=== PATIENT | male | born 1965 | race Caucasian/White ===

== ENCOUNTER 2019-03-25 01:35 | Emergency (ER) | payer OTHER ==
[~2019-03-25] VITALS: Ht 177.8 cm; Wt 79.5 kg
[2019-03-25 01:40] VITALS: BP 135/95
[2019-03-25] MEDS ORDERED: MVI, ADULT NO.4 WITH VIT K 10 ML, FOLIC ACID SYRINGE for ER 1 MG, THIAMINE INJ 100 MG i... IV ONE ×4 (02:00)
[2019-03-25] MEDS ORDERED: FOLIC ACID 5 MG/ML SYRINGE for ER IV ONE (02:06)
[2019-03-25] MEDS ORDERED: MVI, ADULT NO.4 WITH VIT K 10 ML VIAL IV ONE (02:06)
[2019-03-25] MEDS ORDERED: THIAMINE 200 MG/2 ML VIAL. IV ONE (02:06)
--- NOTE | 2019-03-25 02:10 | PHYS DOC ---
Adult General Chief Complaint Chief Complaint: fall, etoh HPI HPI 53-year-old male presents via EMS after fall at home. The patient admits to drinking a heavy amount of vodka since he got out of correction several days ago. He is drinking at least a liter per day. He fell a few days ago and was reported to be checked out at [facility]. He fell again today. He has left knee swelling and pain as well as some abrasions of his face. He knows that he fell on the floor, but does not really remember what happened. He has been drinking heavily today. The left knee has been swollen for a couple of days. He denies headache, fever, chills. Review of Systems Review of Systems Constitutional: Denies fever or chills [] Eyes: Denies change in visual acuity, redness, or eye pain [] HENT: Denies nasal congestion or sore throat [] Respiratory: Denies cough or shortness of breath [] Cardiovascular: No additional information not addressed in HPI [] GI: Denies abdominal pain, nausea, vomiting, bloody stools or diarrhea [] : Denies dysuria or hematuria [] Musculoskeletal: Knee pain[] Integument: Denies rash or skin lesions [] Neurologic: Denies headache, focal weakness or sensory changes [] Endocrine: Denies polyuria or polydipsia [] All other systems were reviewed and found to be within normal limits, except as documented in this note. Current Medications Current Medications Current Medications Medications (Trade) Dose Ordered Sig/Aaron Start Time Stop Time Status Last Admin Dose Admin Multivitamins/ Minerals 10 ml/ Folic Acid 1 mg/ Thiamine HCl 100 mg/Sodium Chloride 1,011.1 ml @ 1,000 mls/ hr 1X ONCE 03/25/19 02:00 03/25/19 03:00 UNV Physical Exam Physical Exam Constitutional: Well developed, well nourished, no acute distress, non-toxic appearance. [] HENT: Normocephalic, atraumatic, bilateral external ears normal, oropharynx moist, no oral exudates, nose normal. [] Eyes: PERRLA, EOMI, conjunctiva normal, no discharge. [] Neck: Normal range of motion, no tenderness, supple, no stridor. [] Cardiovascular:Heart rate regular rhythm, no murmur [] Lungs & Thorax: Bilateral breath sounds clear to auscultation [] Abdomen: Bowel sounds normal, soft, no tenderness, no masses, no pulsatile masses. [] Skin: Abrasions of the face, right knee, left knee[] Back: No tenderness, no CVA tenderness. [] Extremities: Significant swelling of the left knee, warm to the touch, mildly erythematous overlying skin.[] Neurologic: Alert and oriented X 3, normal motor function, normal sensory funct ion, no focal deficits noted. [] Psychologic: Affect normal, judgement normal, mood normal. [] EKG EKG [] Radiology/Procedures Radiology/Procedures [] Impressions: Indication:Left knee pain and swelling. TECHNIQUE: 3 views of the left knee COMPARISON:None FINDINGS/ impression: No acute fracture or dislocation. No joint effusion. Prepatellar soft tissue swelling noted. Electronically signed by: Remigio Moreno DO (03/25/2019 2:37 AM) [facility] DICTATED AND SIGNED BY: REMIGIO MORENO DO DATE: 03/25/19236 CC: RICHELLE BAJWA DO; DELMY MERCADO APRN ~ Course & Med Decision Making Course & Med Decision Making Pertinent Labs and Imaging studies reviewed. (See chart for details) Given the swelling of the patient's knee and it did not the touch, I did do a repeat aspiration. I was able to remove 14 mL of serosanguineous fluid. These were sent to the lab for cell count, Gram stain, culture, and crystal analysis. We will also perform basic labs and a banana bag, 1 L. Patient's labs are unremarkable. His knee aspiration fluid analysis is a send out lab. We will notify him if infection is seen. I do not have high suspicion of infection. The patient would like to go home. He is stable for discharge at this time. [] Dragon Disclaimer Dragon Disclaimer This electronic medical record was generated, in whole or in part, using a voice recognition dictation system. Departure Departure: Impression: Primary Impression: Alcohol intoxication Additional Impressions: Left knee pain Fall Disposition: HOME, SELF-CARE Condition: STABLE Referrals: DELMY MERCADO APRN (PCP) Patient Instructions: Alcohol Intoxication, [id number] Problem Qualifiers Primary Impression: Alcohol intoxication Complication of substance-induced condition: uncomplicated Qualified Codes: F10.920 - Alcohol use, unspecified with intoxication, uncomplicated Additional Impressions: Left knee pain Chronicity: acute Qualified Codes: M25.562 - Pain in left knee Fall Encounter type: initial encounter Qualified Codes: W19.XXXA - Unspecified fall, initial encounter RICHELLE BAJWA DO March 25, 2019 02:10
--- NOTE | 2019-03-25 02:40 | RAD ---
Indication:Left knee pain and swelling. TECHNIQUE: 3 views of the left knee COMPARISON:None FINDINGS/ impression: No acute fracture or dislocation. No joint effusion. Prepatellar soft tissue swelling noted. Electronically signed by: Remigio Polo DO (03/25/2019 2:37 AM) [facility]
[2019-03-25 03:00] LABS: BASO # 0.3 x10^3/uL (0.0-0.2); BASO % 5 % (0-3); EOS % 1 % (0-3); HEMATOCRIT 35.4 % (39.0-53.0); HEMOGLOBIN 12.5 g/dL (13.0-17.5); LYMPH # 2.1 x10^3/uL (1.0-4.8); LYMPH % 38 % (24-48); MEAN CORPUSCULAR HEMOGLOBIN 34 pg (25-35); MEAN CORPUSCULAR HGB CONC 35 g/dL (31-37); MEAN CORPUSCULAR VOLUME 97 fL (79-100); MONO # 0.6 x10^3/uL (0.0-1.1); MONO % 10 % (0-9); NEUT # 2.6 x10^3uL (1.8-7.7); NEUT % 47 % (31-73); PLATELET COUNT 457 x10^3/uL (140-400); RED BLOOD COUNT 3.67 x10^6/uL (4.30-5.70); RED CELL DISTRIBUTION WIDTH 18.2 % (11.5-14.5); WHITE BLOOD COUNT 5.6 x10^3/uL (4.0-11.0)
[2019-03-25 03:27] LABS: ALBUMIN 3.6 g/dL (3.4-5.0); ALBUMIN/GLOBULIN RATIO 1.2 (1.0-1.7); CALCIUM 7.8 mg/dL (8.5-10.1); CREATININE 0.7 mg/dL (0.7-1.3); GFR 118.4; POTASSIUM 3.5 mmol/L (3.5-5.1); TOTAL BILIRUBIN 0.7 mg/dL (0.2-1.0); TOTAL PROTEIN 6.7 g/dL (6.4-8.2)
[2019-03-25 05:08] LABS: BF CLARITY TURBID; BF COLOR RED; BF SOURCE SYNOVIAL
[2019-03-25 05:09] LABS: BF RBC COUNT 531250; BF WBC COUNT 3600
[2019-03-25 06:18] LABS: BF MON % 55 %; BF PMN % 45 %
== END 2019-03-25 06:20 | disposition home or self-care (01) ==
LOC: ER 01:35
DX: S80.212A Abrasion, left knee, initial encounter (principal); S80.211A Abrasion, right knee, initial encounter; S00.81XA Abrasion of other part of head, initial encounter; F10.920 Alcohol use, unspecified with intoxication, uncomplicated; M25.562 Pain in left knee; W18.39XA Other fall on same level, initial encounter; Y93.89 Activity, other specified; Y92.89 Other specified places as the place of occurrence of the external cause; Y99.8 Other external cause status
CPT/HCPCS: 20610; 36415; 73562; 80053; 85025; 87070; 89050; 89060; 96365; 99285-25; J7030

== ENCOUNTER 2020-09-01 07:39 | Emergency (ER) | payer OTHER ==
[~2020-09-01] VITALS: Ht 177.8 cm; Wt 81.0 kg
--- NOTE | 2020-09-01 08:01 | PHYS DOC ---
Past History Past Medical History: Alcoholism Past Surgical History: No Surgical History Alcohol Use: Heavy Drug Use: None General Adult EDM: Chief Complaint: MECHANICAL FALL HPI: HPI: 54-year-old male presents with right elbow pain. He was at work when he got his foot tangled up in some cords and fell onto a hard floor. At first he did not think it was a big deal so he got up and tried to go about his day. Within 10 minutes the pain in the right elbow increase significantly. He now has a lot of pain with flexion or extension. If he holds it at about 50 degrees of flexion the pain is minimal. He denies any other injuries or complaints at this time. Review of Systems: Review of Systems: Constitutional: Denies fever or chills Eyes: Denies change in visual acuity HENT: Denies nasal congestion or sore throat Respiratory: Denies cough or shortness of breath Cardiovascular: Denies chest pain or edema GI: Denies abdominal pain, nausea, vomiting, bloody stools or diarrhea : Denies dysuria Musculoskeletal: Right elbow and forearm pain Integument: Denies rash Neurologic: Denies headache, focal weakness or sensory changes Endocrine: Denies polyuria or polydipsia Lymphatic: Denies swollen glands Psychiatric: Denies depression or anxiety Physical Exam: PE: Constitutional: Well developed, well nourished, no acute distress, non-toxic appearance. [] HENT: Normocephalic, atraumatic, bilateral external ears normal, oropharynx moist, no oral exudates, nose normal. [] Eyes: PERRLA, EOMI, conjunctiva normal, no discharge. [] Neck: Normal range of motion, no tenderness, supple, no stridor. [] Cardiovascular: Heart rate regular rhythm, no murmur [] Lungs & Thorax: Bilateral breath sounds clear to auscultation [] Abdomen: Bowel sounds normal, soft, no tenderness, no masses, no pulsatile masses. [] Skin: Warm, dry, no erythema, no rash. [] Back: No tenderness, no CVA tenderness. [] Extremities: Tenderness over the right elbow, no ecchymosis or obvious deformity. Range of motion deferred at this time due to pain. [] Neurologic: Alert and oriented X 3, normal motor function, normal sensory function, no focal deficits noted. [] Psychologic: Affect normal, judgement normal, mood normal. [] EKG: EKG: [] Radiology/Procedures: Radiology/Procedures: [] Impressions: EXAMINATION: ELBOW RIGHT 3V, FOREARM RIGHT CLINICAL HISTORY: Right elbow/forearm pain following fall TECHNIQUE: ELBOW RIGHT 3V, FOREARM RIGHT Number of Images/Views: 312 2 forearm COMPARISON: None FINDINGS: Mildly impacted radial neck fracture with slight apex anterior angulation. No additional acute fracture visualized in the elbow or forearm. Joint spaces and alignment maintained with tiny osteophyte at the coronoid process. Small joint effusion at the elbow. IMPRESSION: Mildly impacted right radial neck fracture. Electronically signed by: Bean Zhao DO (09/01/2020 8:18 AM) [id number] DICTATED AND SIGNED BY: BEAN ZHAO DO DATE: 09/01/20817 CC: RICHELLE BAJWA DO; ALEYDA DANIEL MD ~ Heart Score: Risk Factors: Risk Factors: DM, Current or recent (<one month) smoker, HTN, HLP, family history of CAD, obesity. Risk Scores: Score 0 - 3: 2.5% MACE over next 6 weeks - Discharge Home Score 4 - 6: 20.3% MACE over next 6 weeks - Admit for Clinical Observation Score 7 - 10: 72.7% MACE over next 6 weeks - Early Invasive Strategies Course & Med Decision Making: Course & Med Decision Making Pertinent Labs and Imaging studies reviewed. (See chart for details) The patient does have a radial head fracture. We will place him in a posterior splint and sling and advised follow-up with orthopedics. [] Dragon Disclaimer: Dragon Disclaimer: This electronic medical record was generated, in whole or in part, using a voice recognition dictation system. Departure Departure: Impression: Primary Impression: Radial head fracture, closed Qualified Codes: S52.121A - Displaced fracture of head of right radius, initial encounter for closed fracture Disposition: 01 DC HOME SELF CARE/HOMELESS Condition: STABLE Referrals: ALEYDA DANIEL MD (PCP) Patient Instructions: Radial Head Fracture, [id number] Scripts Hydrocodone Bit/Acetaminophen (NORCO 5-325 TABLET) 1 Each Tablet 1 TAB PO PRN Q6HRS PRN for PAIN, #10 TAB 0 Refills Prov: RICHELLE BAJWA DO 09/01/20 RICHELLE BAJWA DO Sep 01, 2020 08:01
[2020-09-01] MEDS ORDERED: HYDR-3165 PO (08:11)
--- NOTE | 2020-09-01 08:21 | RAD ---
EXAMINATION: ELBOW RIGHT 3V, FOREARM RIGHT CLINICAL HISTORY: Right elbow/forearm pain following fall TECHNIQUE: ELBOW RIGHT 3V, FOREARM RIGHT Number of Images/Views: 312 2 forearm COMPARISON: None FINDINGS: Mildly impacted radial neck fracture with slight apex anterior angulation. No additional acute fracture visualized in the elbow or forearm. Joint spaces and alignment maintained with tiny osteophyte at the coronoid process. Small joint effusion at the elbow. IMPRESSION: Mildly impacted right radial neck fracture. Electronically signed by: Bean Grace DO (09/01/2020 8:18 AM) [id number]
[2020-09-01 08:52] VITALS: BP 150/90
== END 2020-09-01 08:53 | disposition home or self-care (01) ==
LOC: ER 07:39
DX: S52.121A Displaced fracture of head of right radius, initial encounter for closed fracture (principal); F10.20 Alcohol dependence, uncomplicated; W18.39XA Other fall on same level, initial encounter; Y93.89 Activity, other specified; Y92.89 Other specified places as the place of occurrence of the external cause; Y99.8 Other external cause status; Y90.9 Presence of alcohol in blood, level not specified
CPT/HCPCS: 29125; 73080; 73090; 99284

== ENCOUNTER 2021-03-22 14:25 | Emergency (ER) | payer OTHER ==
[~2021-03-22] VITALS: Ht 177.8 cm; Wt 81.0 kg
[~2021-03-22 14:25] MED LIST: HYDR-3165 PO
--- NOTE | 2021-03-22 15:05 | PHYS DOC ---
Past History Past Medical History: Anxiety, Asthma, DVT, Other Additional Past Medical Histor: alcohol abuse Past Surgical History: Other Additional Past Surgical Histo: FILTER, SCREWS/PLATE IN LEFT ANKLE, HERNIA, RIGHT SHOULDER Alcohol Use: Heavy Drug Use: None Adult General Chief Complaint Chief Complaint: ANXIETY/PANIC ATTACK HPI HPI Patient is a 55-year-old male presenting via EMS for alcohol detox. Patient reports long history of alcohol dependence admitting he drinks at least a sixpack of beer daily. He has long history of this. Admits he has been sober in the past and was "sober for years". He is tearful, states he relapsed several months ago due to an undisclosed reason and has been drinking daily ever since. He woke up today, drinks a sixpack of beer and at 11 AM, got tearful about current state of health and wants to quit. No recent trauma, fever or other change in baseline health. Reports he has history of DVT in feet and is currently on Xarelto. Does admit he has history of withdrawing from alcohol, has had seizures in the past Review of Systems Review of Systems Fourteen body systems of review of systems have been reviewed. See HPI for pertinent positives and negative responses, other hess all other systems are negative, non-pertinent or non-contributory Allergies Allergies Allergies Coded Allergies Type Severity Reaction Last Updated Verified No Known Drug Allergies 09/01/20 No Physical Exam Physical Exam Constitutional: Well developed, well nourished, no acute distress, non-toxic appearance. HENT: Normocephalic, atraumatic, bilateral external ears normal, oropharynx moist, no oral exudates, nose normal. Flushed face Eyes: PERRLA, EOMI, conjunctiva normal, no discharge. Neck: Normal range of motion, no tenderness, supple, no stridor. Cardiovascular: Heart rate regular, sinus rhythm, no murmurs rubs or gallops Lungs & Thorax: Bilateral breath sounds clear to auscultation Abdomen: Bowel sounds normal, soft, no tenderness, no masses, no pulsatile masses. Nonsurgical abdomen, no peritoneal signs Skin: Warm, dry, no erythema, no rash. Back: No tenderness, no CVA tenderness. Extremities: No tenderness, no cyanosis, no clubbing, ROM intact, no edema. Neurologic: Alert and oriented X 3, grossly normal motor & sensory function, no focal deficits noted. Psychologic: Tearful affect, judgement normal, mood normal. Current Patient Data Vital Signs Vital Signs Date Time Temp Pulse Resp B/P (MAP) Pulse Ox O2 Delivery O2 Flow Rate FiO2 03/22/21 14:36 98.6 84 16 150/90 (110) 95 Room Air Lab Results Current Medications Medications (Trade) Dose Ordered Sig/Aaron Route PRN Reason Start Time Stop Time Status Last Admin Dose Admin Thiamine HCl 100 mg/Sodium Chloride 51 ml @ 102 mls/hr DAILY IV 03/23/21 09:00 03/22/21 18:02 DC 03/22/21 16:34 Sodium Chloride 1,000 ml @ 1,000 mls/hr 1X ONCE IV 03/22/21 15:30 03/22/21 16:29 DC 03/22/21 15:49 Lorazepam (Ativan Inj) 1 mg 1X ONCE IVP 03/22/21 15:30 03/22/21 15:45 DC 03/22/21 15:51 EKG EKG EKG ordered and interpreted by myself at 1440 hrs. as sinus rhythm at 87 bpm, prolonged QTC at 482 otherwise unremarkable intervals, no axis deviation, no acute ischemic findings, no STEMI Radiology/Procedures Radiology/Procedures [] Heart Score C/O Chest Pain: No HEART Score for Chest Pain: HEART Score for Chest Pain Response (Comments) Value History Slighlty/Non-Suspicious 0 ECG Normal 0 Age >45 - < 65 1 Risk Factors 1 or 2 Risk Factors 1 Troponin < Normal Limit 0 Total 2 Risk Factors: Risk Factors: DM, Current or recent (<one month) smoker, HTN, HLP, family history of CAD, obesity. Risk Scores: Risk Factors: DM, Current or recent (<one month) smoker, HTN, HLP, family history of CAD, obesity. Course & Med Decision Making Course & Med Decision Making Hemodynamically stable patient with HPI, physical exam and ER work-up consistent with acute on chronic alcohol dependence PAT team contacted and evaluated patient. Patient was excepted to [facility] for continued mental health needs after medical clearance from our facility. Given alcohol level, plan will be to admit patient Nonetheless, when discussing proposed plan of care patient deferred hospital admission and/or transfer to [facility]. States he has animals at home and states he has some things he needs to take care of before being placed into inpatient status long-term I had an extensive discussion with the patient regarding the risks of leaving AMA including but not limited to , permanent disability, and worsening condition. Pt acknowledged the risks and agreed to take full responsibility. Pt was A&Ox4 and had full medical decision making capacity when they signed the AMA sheet. Patient's alcohol level severely elevated but this is likely baseline for him, he is functional, he is aware the risks and benefits discussed Risks and Recommendations: The risks of refusing recommended care that were disclosed and acknowledged by the patient include loss of current lifestyle, permanent mental impairment, and . The recommended medical care being refused has been discussed with the patient and is to stay for continued monitoring, workup, and possible treatment. Discharge Care: The patient understands they are welcome to return to the hospital at any time to receive the recommended care or any other care at any time, regardless of their ability to pay for such care. Discharge instructions were provided to the patient. Dragon Disclaimer Dragon Disclaimer This electronic medical record was generated, in whole or in part, using a voice recognition dictation system. Departure Departure: Impression: Primary Impression: Alcohol dependence Disposition: LEFT AGAINST MEDICAL ADVICE Condition: STABLE Referrals: ALEYDA DANIEL MD (PCP) Patient Instructions: Alcohol Intoxication, Alcohol Withdrawal Additional Instructions: You were seen for alcohol intoxication and dependence. As abrupt cessation of alcohol can be fatal, you should refer to the resource sheet for help in stopping your addiction with help in a controlled environment. As discussed, we recommended hospital admission and placement to [facility] for inpatient alcohol rehab but you declined. You had full capacity to make this decision and understood the risks and benefits of doing so that included potential . Please know we are here for you 23/05 if you should change your mind and are always wanting to take care and provide the best care to you so if things change prior to outpatient follow-up please do not hesitate to come back for repeat evaluation and intervention as indicated. It was a pleasure to take care of you and I wish you the best going forward DEEPAK ERIC DO March 22, 2021 15:05
[2021-03-22 15:25] LABS: BASO # 0.2 x10^3/uL (0.0-0.2); BASO % 6 % (0-3); EOS # 0.2 x10^3/uL (0.0-0.7); EOS % 6 % (0-3); HEMATOCRIT 45.3 % (39.0-53.0); HEMOGLOBIN 15.6 g/dL (13.0-17.5); LYMPH # 1.7 x10^3/uL (1.0-4.8); LYMPH % 45 % (24-48); MEAN CORPUSCULAR HEMOGLOBIN 36 pg (25-35); MEAN CORPUSCULAR HGB CONC 34 g/dL (31-37); MEAN CORPUSCULAR VOLUME 105 fL (79-100); MONO # 0.7 x10^3/uL (0.0-1.1); MONO % 19 % (0-9); NEUT # 0.9 x10^3uL (1.8-7.7); NEUT % 25 % (31-73); PLATELET COUNT 175 x10^3/uL (140-400); RED BLOOD COUNT 4.32 x10^6/uL (4.30-5.70); RED CELL DISTRIBUTION WIDTH 15.2 % (11.5-14.5); WHITE BLOOD COUNT 3.7 x10^3/uL (4.0-11.0)
[2021-03-22] MEDS ORDERED: IV NORMAL SALINE 1,000ML 1,000 ML IV ONE (15:30)
[2021-03-22 15:35] LABS: CALCIUM 7.8 mg/dL (8.5-10.1); CREATININE 0.6 mg/dL (0.7-1.3); GFR 140.4
[2021-03-22 15:41] LABS: ALBUMIN 3.4 g/dL (3.4-5.0); ALBUMIN/GLOBULIN RATIO 1.1 (1.0-1.7); TOTAL BILIRUBIN 0.6 mg/dL (0.2-1.0); TOTAL PROTEIN 6.5 g/dL (6.4-8.2)
--- NOTE | 2021-03-22 16:16 | EKG ---
[address] [address] Test Date: 2021-03-22 Test Time: 14:36:05 Pat Name: GILLIAN FUNES Department: Room: Gender: M Crane Hooker: LIDIA : 1965 Requested By: DEEPAK ERIC Order Number: [id number] Reading MD: Measurements Intervals [place] Rate: 87 P: 43 UT: 172 QRS: 20 QRSD: 96 T: 59 QT: 400 QTc: 482 Interpretive Statements SINUS RHYTHM PROLONGED QT NO SPECIFIC ECG ABNORMALITIES RI6.02 No previous ECG available for comparison
[2021-03-22 17:30] VITALS: BP 107/78
[2021-03-23] MEDS ORDERED: BUSP10TA PO (00:42)
[2021-03-23] MEDS ORDERED: CITA10TA4 PO (00:42)
[2021-03-23] MEDS ORDERED: TRAZ-120 PO (00:42)
[2021-03-23] MEDS ORDERED: CITA20TA6 PO (00:42)
[2021-03-23] MEDS ORDERED: GABA100C6 PO (00:42)
[2021-03-23] MEDS ORDERED: RIVA20TA2 PO (00:42)
[2021-03-23] MEDS ORDERED: THIAMINE INJ 100 MG in IV NORMAL SALINE 50ML 50 ML IV SCH (09:00)
== END 2021-03-22 18:02 | disposition left against medical advice (07) ==
LOC: ER 14:25
DX: F10.229 Alcohol dependence with intoxication, unspecified (principal); F10.239 Alcohol dependence with withdrawal, unspecified; F41.9 Anxiety disorder, unspecified; J45.909 Unspecified asthma, uncomplicated; Y90.8 Blood alcohol level of 240 mg/100 ml or more
CPT/HCPCS: 36415; 80053; 83735; 84484; 85025; 93005; 96361; 96374; 96375; 99284; G0480; J2060; J7030

== ENCOUNTER 2021-03-22 20:52 | Inpatient (IN) | payer SELFPAY ==
[~2021-03-22] VITALS: Ht 177.8 cm; Wt 84.3 kg
--- NOTE | 2021-03-22 21:13 | PHYS DOC ---
Past History Past Medical History: Anxiety, Asthma, DVT, Other Additional Past Medical Histor: alcohol abuse Past Surgical History: Other Additional Past Surgical Histo: FILTER, SCREWS/PLATE IN LEFT ANKLE, HERNIA, RIGHT SHOULDER Alcohol Use: Heavy Drug Use: None Adult General Chief Complaint Chief Complaint: ALCOHOL INTOXICATION HPI HPI Patient is a 55-year-old male with a past medical history significant for alco holism who presents to the emergency department with a chief complaint of wanting alcohol detox. States he drinks anywhere from 10 to 20 glasses a day of wine and has for quite some time. States he was in the emergency department earlier in the day for the same thing and left before treatment was completed. States he essentially left, went home and had more alcohol. States he came back because he is drunk, he is upset and he wants to quit drinking alcohol. Denies any headache, changes in vision, chest pain, shortness of breath, abdominal pain, nausea, vomiting, dysuria, hematuria or blood in the stool. Denies any recent travel, traumas, fevers, illnesses or known ill contacts. Denies any other drug use outside of alcohol. Denies any suicidal thoughts or ideations. Denies any homicidal ideations. Denies any type of hallucinations. States he is here solely to get some help with his drinking problem. Review of Systems Review of Systems Review of systems otherwise unremarkable except noted in HPI Allergies Allergies Allergies Coded Allergies Type Severity Reaction Last Updated Verified No Known Drug Allergies 09/01/20 No Physical Exam Physical Exam Constitutional: Well developed, well nourished, no acute distress, non-toxic appearance. [] HENT: Normocephalic, atraumatic, oropharynx moist, no oral exudates, nose normal. [] Eyes: conjunctiva normal, no discharge. [] Neck: Normal range of motion, no tenderness, Cardiovascular: Sinus tachycardia Lungs & Thorax: Bilateral breath sounds clear to auscultation [] Abdomen: soft, no tenderness, no masses, no pulsatile masses. [] Skin: Warm, dry, no erythema, no rash. [] Back: No tenderness, Extremities: No tenderness, no cyanosis, no clubbing, ROM intact, no edema. [] Neurologic: Alert and oriented X 3, normal motor function, normal sensory function, no focal deficits noted. [] Psychologic: Affect normal, judgement normal, mood normal. [] EKG EKG [] Radiology/Procedures Radiology/Procedures [] Heart Score C/O Chest Pain: No Risk Factors: Risk Factors: DM, Current or recent (<one month) smoker, HTN, HLP, family history of CAD, obesity. Risk Scores: Risk Factors: DM, Current or recent (<one month) smoker, HTN, HLP, family history of CAD, obesity. Course & Med Decision Making Course & Med Decision Making Patient is a 55-year-old male who presents the emergency department stating he wants help and/or resources with his alcohol problem. States he was here earlier in the day and left, and he did talk to the guidance counselor and was set up to go somewhere but left and he now regrets that. Vital signs notable for sinus tachycardia. Physical exam noted above. Laboratory analysis notable for elevated MCV, elevated GGT and LFTs, and mild hypocalcemia. Covid negative. Patient given B vitamin complex, and calcium replacement. Given IV fluid resuscitation. Given meal. Discussed patient with PAT team and [facility] facility who stated that they would take the patient to help with detox but do not fill prescriptions for any meds and he would have to have his own upon arrival which they would then administer per prescription. Discussed patient with Dr. Stewart, and plan was to admit patient overnight in the hospital for continued IV fluid and alcohol withdrawal management. Tomorrow reevaluate patient and may be get his prescription for benzodiazepine taper and get him to [facility] for continued alcohol detox. Discussed this plan with patient who was agreeable, verbalized understanding and agreed with plan of admission to the hospital. [] Dragon Disclaimer Dragon Disclaimer This electronic medical record was generated, in whole or in part, using a voice recognition dictation system. Departure Departure: Impression: Primary Impression: Alcohol abuse Additional Impression: Alcohol withdrawal Disposition: ADMITTED INPATIENT Admitting Physician: Courtney Stewart Condition: STABLE Referrals: PCP,NO (PCP) Problem Qualifiers CHANDLER COLLADO MD March 22, 2021 21:13
[2021-03-22] MEDS ORDERED: IV RINGERS SOLUTION,LACTATED 1,000 ML IV ONE ×2 (21:30→23:00)
[2021-03-22] MEDS ORDERED: CALCIUM CARBONATE 500 MG TAB.CHEW PO PRN (22:00)
[2021-03-22 23:40] LABS: BARBITURATES NEG (NEG); BENZODIAZEPINES NEG (NEG); CANNABINOIDS NEG (NEG); COCAINE NEG (NEG); METHADONE NEG (NEG); OPIATES NEG (NEG); PHENCYCLIDINE NEG (NEG)
[2021-03-22 23:51] LABS: AMPHETAMINE/METHAMPHETAMINE NEG (NEG)
[2021-03-23 00:25] VITALS: BP 144/91
[2021-03-23] MEDS ORDERED: CITA10TA4 PO (00:42)
[2021-03-23] MEDS ORDERED: GABA100C6 PO (00:42)
[2021-03-23] MEDS ORDERED: CITA20TA6 PO (00:42)
[2021-03-23] MEDS ORDERED: RIVA20TA2 PO (00:42)
[2021-03-23] MEDS ORDERED: BUSP10TA PO (00:42)
[2021-03-23] MEDS ORDERED: TRAZ-120 PO (00:42)
[2021-03-23 05:18] VITALS: BP 132/91
[2021-03-23 07:35] LABS: BASO # 0.2 x10^3/uL (0.0-0.2); BASO % 5 % (0-3); EOS # 0.2 x10^3/uL (0.0-0.7); EOS % 6 % (0-3); HEMATOCRIT 38.2 % (39.0-53.0); HEMOGLOBIN 13.2 g/dL (13.0-17.5); LYMPH % 24 % (24-48); MEAN CORPUSCULAR HEMOGLOBIN 36 pg (25-35); MEAN CORPUSCULAR HGB CONC 35 g/dL (31-37); MEAN CORPUSCULAR VOLUME 105 fL (79-100); MONO # 0.7 x10^3/uL (0.0-1.1); MONO % 17 % (0-9); NEUT % 49 % (31-73); PLATELET COUNT 116 x10^3/uL (140-400); RED BLOOD COUNT 3.65 x10^6/uL (4.30-5.70); RED CELL DISTRIBUTION WIDTH 14.8 % (11.5-14.5); WHITE BLOOD COUNT 4.2 x10^3/uL (4.0-11.0)
[2021-03-23] MEDS: MVI, ADULT NO.4 WITH VIT K 10 ML, THIAMINE INJ 100 MG, FOLIC ACID INJ 1 MG in IV NORMAL... IV SCH (08:00)
[2021-03-23] MEDS ORDERED: VITAMIN B COMPLEX CAPSULE. PO SCH (09:00)
[2021-03-23 10:38] VITALS: BP 147/91
[2021-03-23] MEDS ORDERED: ACETAMINOPHEN 325 MG TABLET PO PRN (10:45)
[2021-03-23 14:01] LABS: ALBUMIN 2.9 g/dL (3.4-5.0); ALBUMIN/GLOBULIN RATIO 1.3 (1.0-1.7); CALCIUM 7.6 mg/dL (8.5-10.1)
[2021-03-23 14:02] LABS: CREATININE 0.6 mg/dL (0.7-1.3); GFR 140.4; POTASSIUM 3.8 mmol/L (3.5-5.1); TOTAL BILIRUBIN 0.6 mg/dL (0.2-1.0); TOTAL PROTEIN 5.2 g/dL (6.4-8.2)
[2021-03-23 15:19] VITALS: BP 137/87
[2021-03-23] MEDS ORDERED: busPIRone 10 MG TABLET. PO PRN (17:15)
--- NOTE | 2021-03-23 17:26 | HP ---
HISTORY OF PRESENT ILLNESS: The patient is a 55-year-old male patient who came to the emergency room wanting alcohol detoxification. He states that he drinks anywhere from 10-20 glasses a day of wine and has for quite some time. He states that he was in the Emergency Department early on the same day for the same thing and left before treatment was completed. He stated he essentially left, went home and had some more alcohol. He came back as he is drunk and he is upset and he wants to quit drinking alcohol. He denied any headaches, changes in vision, chest pain, shortness of breath, abdominal pain, nausea, vomiting, dysuria, hematuria, or blood in the stool. Denies any recent travel, trauma, fever, illnesses or known ill contacts. Denied any other drug use outside of alcohol. Denied any suicidal thoughts or ideations. Denied any homicidal ideation. Denied any type of hallucination. He states he is here only to get some help with his drinking problem. He was basically extensively investigated and has had lab work, which showed that his blood alcohol level was high at 122. His CBC was unremarkable as well as his chemistry and was admitted and was started on alcohol withdrawal protocol. PAST MEDICAL HISTORY: Significant for bronchial asthma, DVT. PAST SURGICAL HISTORY: Significant for left shoulder replacement for recurrent dislocation. Left foot fracture, status post open reduction and internal fixation. He has also an IVC filter. ALLERGIES: No known drug allergies. MEDICATIONS: He is currently on the following medications: He is on rivaroxaban 20 mg daily, gabapentin 100 mg at bedtime, citalopram hydrobromide 20 mg once a day, trazodone 50 mg at bedtime. FAMILY HISTORY: Has one younger brother, still alive and lives in [place]. Father at age of 54 because of emphysema. Mother at age of 90 because of myocardial infarction. SOCIAL HISTORY: He is single, never , has no children. He smokes occasionally; however, drinks alcohol heavily, drinks a gallon to a gallon and a half of wine every day, does not use any other drugs. REVIEW OF SYSTEMS: As per history of present illness. PHYSICAL EXAMINATION: GENERAL: On arrival to the emergency room, he looked well and was clearly in no apparent respiratory distress. No pallor, jaundice, cyanosis, or thyromegaly. No jugular distention. No limb edema. VITAL SIGNS: His heart rate was 109, blood pressure was 142/102, temperature was 98, respiratory rate was 18, and oxygen saturation was 93% on room air. HEAD, EYES, EARS, NOSE, AND THROAT: Normocephalic, atraumatic. NECK: Supple. HEART: Showed normal first and second heart sounds. No gallop or murmur. CHEST: Clear to auscultation. No crepitation or rhonchi. ABDOMEN: Distended, soft, nontender. No guarding. No rigidity. No organomegaly. All hernial orifices intact. Bowel sounds normal. NEUROLOGIC: He was alert, oriented x3 with normal motor and sensory function. His affect, judgment, and mood were normal. LABORATORY DATA: While in the emergency room, he has had lab work done, which showed a white cell count of 4200, hemoglobin 13, hematocrit 38, MCV 105, and platelet count of 116,000. His chemistry showed a serum sodium of 143, potassium 3.8, chloride 105, bicarbonate 24, anion gap of 14, BUN 4, creatinine 0.6. Estimated GFR was 140 mL per minute. He has glucose of 109, calcium was 7.6. Total bilirubin, AST, ALT, alkaline phosphatase are slightly elevated. Total protein 5.2, albumin 2.9. His tox screen was positive for high blood alcohol level of 122 mg/dL. All other drugs were negative including opiates, methadone, barbiturates, phencyclidine, amphetamine, methamphetamine, benzodiazepine, cocaine and cannabinoids. ASSESSMENT AND PLAN: In summary, this is a 55-year-old male patient, who was admitted with alcohol abuse and questionable alcohol withdrawal. He was started on alcohol withdrawal protocol. Start him on a banana bag. We will follow him. We have consulted the psych assessment team to help with management. ELI/KARSTEN BOO: Maury TID: [id number]
[2021-03-23 19:30] VITALS: BP 132/96
[2021-03-23] MEDS: traZODone 50 MG TABLET. PO SCH (20:24)
[2021-03-23] MEDS: GABAPENTIN 100 MG CAPSULE. PO SCH (20:24)
[2021-03-23 22:36] VITALS: BP 133/100
--- NOTE | 2021-03-24 00:42 | PN ---
DATE: 03/23/2021 SUBJECTIVE: The patient is resting, slightly propped up in bed, in no apparent distress. He was admitted requesting alcohol detoxification. He apparently was seen by the psych assessment team and they have agreed on a safety plan, will be discharged home tomorrow. Meanwhile, we will continue with alcohol withdrawal protocol. PHYSICAL EXAMINATION: GENERAL: When I saw him today, he looked well and was clearly in no apparent respiratory distress. No pallor, jaundice, or cyanosis. No thyromegaly. No jugular venous distention or limb edema. VITAL SIGNS: His heart rate was 94, blood pressure is 137/87, temperature was 99.6, respiratory rate was 18, and oxygen saturation was 93%. The rest of clinical exam stable. PLAN: To continue with alcohol withdrawal protocol and patient will be discharged as planned per the Psych assessment team tomorrow. SAVANAH DR: Maury TID: [id number]
[2021-03-24 05:55] VITALS: BP 134/96
[2021-03-24] MEDS: CITALOPRAM 20 MG TABLET. PO SCH (09:30)
[2021-03-24] MEDS: CITALOPRAM 10 MG TABLET. PO SCH (09:30)
[2021-03-24] MEDS: MVI, ADULT NO.4 WITH VIT K 10 ML, THIAMINE INJ 100 MG, FOLIC ACID INJ 1 MG in IV NORMAL... IV SCH (09:30)
[2021-03-24] MEDS: RIVAROXABAN 10 MG TABLET. PO SCH (09:30)
[2021-03-24 13:36] VITALS: BP 124/83
[2021-03-24 17:11] VITALS: BP 135/85
[2021-03-24 19:22] VITALS: BP 130/85
[2021-03-24] MEDS: GABAPENTIN 100 MG CAPSULE. PO SCH (20:47)
[2021-03-24] MEDS: traZODone 50 MG TABLET. PO SCH (20:47)
[2021-03-24 23:37] VITALS: BP 116/75
--- NOTE | 2021-03-25 02:53 | PN ---
DATE: 03/24/2021 SUBJECTIVE: The patient is sitting slightly propped up, eating his dinner, in no apparent distress. The nursing staff stated the patient has been extremely unsteady on his feet and wants to be safe and wants to be discharged today. PHYSICAL EXAMINATION: GENERAL: When I examined him, he looked well and was clearly in no apparent respiratory distress. SKIN: No pallor, jaundice, cyanosis, thyromegaly, jugular distention or edema. VITAL SIGNS: His heart rate was 84, blood pressure was 135/85, temperature was 97.8, respiratory rate was 18 and oxygen saturation was 93%. HEAD, EYES, EARS, NOSE AND THROAT: Normocephalic, atraumatic. NECK: Supple. HEART: Normal first and second heart sounds. No gallop, rub or murmur. CHEST: Clear to auscultation, no crepitation or rhonchi. ABDOMEN: Distended, soft, nontender. NEUROLOGIC: He was awake, alert, responding appropriately. All cranial nerves intact. He moves extremities without difficulty; however, according to the physical therapist, the patient has unsafe gait, attempted to ambulate on ambulation trial with roller walker with increased assistance and cues needed for proper use of roller walker positioning and sequencing ____. The patient continued to require assistance with the bathroom, moderate to maximum assistance for brief management and therefore the patient could be ____ another day and will be evaluated again tomorrow to see if it is safe for him to be discharged. ASSESSMENT: Alcohol dependence and alcohol withdrawal. PLAN: To continue with alcohol withdrawal protocol. Continue with physical and occupational therapy. Once stabilized, he can be discharged home. NENITA/REJI DR: Maury TID: [id number]
[2021-03-25 06:08] VITALS: BP 132/84
[2021-03-25] MEDS: RIVAROXABAN 10 MG TABLET. PO SCH (08:26)
[2021-03-25] MEDS: CITALOPRAM 10 MG TABLET. PO SCH (08:27)
[2021-03-25] MEDS: CITALOPRAM 20 MG TABLET. PO SCH (08:27)
[2021-03-25] MEDS: MVI, ADULT NO.4 WITH VIT K 10 ML, THIAMINE INJ 100 MG, FOLIC ACID INJ 1 MG in IV NORMAL... IV SCH (08:28)
--- NOTE | 2021-03-25 09:03 | DS ---
DATE OF DISCHARGE: 03/25/2021 DATE OF ADMISSION: 03/22/2021 DATE OF DISCHARGE: 03/25/2021 ATTENDING PHYSICIAN: Dr. Stewart. FINAL DISCHARGE DIAGNOSES: 1. Acute alcohol intoxication. 2. Alcohol withdrawal. 3. History of deep vein thrombosis. 4. Generalized debilitation. 5. Mild dehydration. HISTORY AND PHYSICAL: The patient is a 55-year-old gentleman, chronic alcoholic, admitted to the ED with symptoms of weakness, confusion and wanting alcohol detoxification. He was intoxicated and there is underlying psychiatric issues. PHYSICAL EXAMINATION: Please see the dictated note. PERTINENT LABORATORY AND X-RAY STUDIES: Admission hemoglobin 13.2 g/dL with a white count of 4200. Serology negative for COVID-19 virus. Alcohol level is 122 mg/dL on admission. Electrolytes within normal range. Creatinine is 0.6 mg/dL. COURSE IN THE HOSPITAL: The patient is admitted. He was started on IV hydration, banana bag and CIWA protocol. He did well. Diet was advanced. On the fourth hospital day, his vital signs were quite stable. Blood pressure was 132/84, pulse is 84 and regular. He was afebrile, oxygen saturation 100% on room air. Lungs were clear. CARDIOVASCULAR: Regular heart tones. He was sober without any impending signs of withdrawal. He is discharged home. There are no changes on his medication. He says he gets it through the [facility]. He will continue his BuSpar, citalopram, Neurontin, hydrocodone p.r.n., and Xarelto 20 mg daily and trazodone 50 mg at bedtime. I wrote him a script for Ativan 1 mg b.i.d. as needed for agitation #20 with no refills. Strong encouragement to avoid alcohol whether or not he quit drinking remains to be seen. He was discharged then from our hospital in stable condition with explicit drug and followup care. MEGHAN/YUMIKO BOO: MEGHAN/nano TID: [id number]
[2021-03-25] MEDS ORDERED: LORA-254 PO (09:11)
== END 2021-03-25 10:30 | disposition home or self-care (01) | DRG 897 ==
LOC: ER 20:52 → 1 SOUTH 22:46
PROVIDERS: ADMIT Internal Medicine; ATTEND Internal Medicine
DX: F10.239 Alcohol dependence with withdrawal, unspecified (principal); F41.9 Anxiety disorder, unspecified; J45.909 Unspecified asthma, uncomplicated; F10.229 Alcohol dependence with intoxication, unspecified; E86.0 Dehydration; F17.200 Nicotine dependence, unspecified, uncomplicated; Y90.6 Blood alcohol level of 120-199 mg/100 ml; Z96.612 Presence of left artificial shoulder joint; Z20.822 Contact with and (suspected) exposure to COVID-19; Z86.718 Personal history of other venous thrombosis and embolism; Z79.01 Long term (current) use of anticoagulants; Z79.899 Other long term (current) drug therapy; Z82.5 Family history of asthma and other chronic lower respiratory diseases; Z82.49 Family history of ischemic heart disease and other diseases of the circulatory system
CPT/HCPCS: 36415; 80053; 80307; 85025; 87426; 96360; G0480; J2060; J7120; U0003; 97116; 97530; 99285-25; J7030

== ENCOUNTER 2021-03-25 20:43 | Emergency (ER) | payer SELFPAY ==
[~2021-03-25] VITALS: Ht 177.8 cm; Wt 84.3 kg
[~2021-03-25 20:43] MED LIST changes: +BUSP10TA PO; +CITA10TA4 PO; +CITA20TA6 PO; +GABA100C6 PO; +LORA-254 PO; +RIVA20TA2 PO; +TRAZ-120 PO
[2021-03-25 20:55] VITALS: BP 116/84
--- NOTE | 2021-03-25 21:06 | PHYS DOC ---
Past History Past Medical History: Anxiety, Asthma, DVT, Other Additional Past Medical Histor: alcohol abuse Past Surgical History: Other Additional Past Surgical Histo: FILTER, SCREWS/PLATE IN LEFT ANKLE, HERNIA, RIGHT SHOULDER Alcohol Use: Heavy Drug Use: None Adult General Chief Complaint Chief Complaint: MECHANICAL FALL HPI HPI Patient is a 55-year-old male who presents with right knee pain. States he was at home earlier in the afternoon and was carrying some boxes and things, tripped in his living room on the carpet and went down onto his knees. States that he has right knee pain, 5 out of 10, dull and achy in nature. States he has an abrasion as well but is up-to-date on his tetanus vaccination. States he did not take anything for the pain. States he came into the emergency department because his friend is a worry wart and wanted him to get checked out. States he is able to walk without issue. Denies any numbness/weakness/tingling. Denies any other injuries. Denies need for pain medicine at this time. Review of Systems Review of Systems Review of systems otherwise unremarkable except noted in HPI Allergies Allergies Allergies Coded Allergies Type Severity Reaction Last Updated Verified No Known Drug Allergies 09/01/20 No Physical Exam Physical Exam Constitutional: Well developed, well nourished, no acute distress, non-toxic appearance. [] HENT: Normocephalic, atraumatic, Cardiovascular:Heart rate regular rhythm, no murmur [] Lungs & Thorax: No respiratory distress Back: No tenderness, Extremities: Mild tenderness at and around patella with abrasion just inferior. Range of motion intact. Neurovascular intact. Patient able to walk. Neurologic: Alert and oriented X 3, no focal deficits noted. [] Psychologic: Affect normal, judgement normal, mood normal. [] EKG EKG [] Radiology/Procedures Radiology/Procedures [] Heart Score C/O Chest Pain: No Risk Factors: Risk Factors: DM, Current or recent (<one month) smoker, HTN, HLP, family history of CAD, obesity. Risk Scores: Risk Factors: DM, Current or recent (<one month) smoker, HTN, HLP, family history of CAD, obesity. Course & Med Decision Making Course & Med Decision Making Patient is a 55-year-old male who presents with right knee pain Vital signs not concerning. Physical exam noted above. Patient denied need for ice, or pain medicine at this time. States he is up-to-date on his tetanus vaccination. Imaging with no acute osseous abnormalities. Advised on pain control at home. Advised to follow-up with primary care physician. Gave return precautions to the ED. Patient grateful, verbalized understanding and agreed with plan of discharge. [] Dragon Disclaimer Dragon Disclaimer This electronic medical record was generated, in whole or in part, using a voice recognition dictation system. Departure Departure: Impression: Primary Impression: Abrasion Additional Impression: Knee pain Disposition: HOME / SELF CARE / HOMELESS Condition: GOOD Referrals: PCP,NO (PCP) KEVIN BROWN MD Patient Instructions: Abrasions, Knee Pain, RICE - Routine Care for Injuries Additional Instructions: Please read all of the attached information very carefully. You can begin using Tylenol, and ibuprofen if you are not allergic and can tolerate it as needed for pain control. You can also use ice. Please follow-up with your primary care physician when you can to update ED visit. Please come back to the ED with new or concerning symptoms as discussed. Problem Qualifiers CHANDLER COLLADO MD March 25, 2021 21:05
--- NOTE | 2021-03-25 21:24 | RAD ---
EXAM: XR KNEE 4 VIEWS WITH PATELLA_RT 03/25/2021 9:03 PM CLINICAL INDICATION: Fall, pain with anterior abrasion COMPARISON: None TECHNIQUE: 4 views of the right knee FINDINGS: There is an old healed proximal fibular fracture. No acute fracture. Alignment is normal. Joint spaces are maintained. No joint effusion or soft tissue abnormality. Mild degenerative changes. IMPRESSION: No acute osseous abnormality. Electronically signed by: Blanche Caal MD (03/25/2021 9:22 PM) [id number]
== END 2021-03-25 21:25 | disposition home or self-care (01) ==
LOC: ER 20:43
DX: S80.211A Abrasion, right knee, initial encounter (principal); F41.9 Anxiety disorder, unspecified; J45.909 Unspecified asthma, uncomplicated; F10.20 Alcohol dependence, uncomplicated; Z86.718 Personal history of other venous thrombosis and embolism; Y90.9 Presence of alcohol in blood, level not specified; W01.0XXA Fall on same level from slipping, tripping and stumbling without subsequent striking against object, initial encounter; Y93.89 Activity, other specified; Y92.89 Other specified places as the place of occurrence of the external cause; Y99.8 Other external cause status
CPT/HCPCS: 73564; 99284

== ENCOUNTER 2021-07-29 02:57 | Emergency (ER) | payer SELFPAY ==
[~2021-07-29] VITALS: Ht 177.8 cm; Wt 84.0 kg
--- NOTE | 2021-07-29 03:03 | PHYS DOC ---
Past History Past Medical History: Anxiety, Asthma, DVT, Other Additional Past Medical Histor: alcohol abuse Past Surgical History: Other Additional Past Surgical Histo: FILTER, SCREWS/PLATE IN LEFT ANKLE, HERNIA, RIGHT SHOULDER Alcohol Use: Heavy Drug Use: None Adult General HPI HPI Patient is a 55-year-old male with a past medical history significant for anxiety and depression who presents with a chief complaint of anxiety and depression, wanting to talk some and get resources for continued counseling and resources for local AA. Denies any suicidal ideation, homicidal ideation or hallucinations. States he has all his medications at home including his depression medicine citalopram and gabapentin for neuropathy. States he has been taking them intermittently and not like exposed to wants to start again. Denies any alcohol or drug use. Review of Systems Review of Systems Review of systems otherwise unremarkable except noted in HPI Allergies Allergies Allergies Coded Allergies Type Severity Reaction Last Updated Verified No Known Drug Allergies 09/01/20 No Physical Exam Physical Exam Constitutional: Well developed, well nourished, no acute distress, non-toxic appearance. [] HENT: Normocephalic, atraumatic, bilateral external ears normal, oropharynx moist, no oral exudates, nose normal. [] Eyes: PERRLA, EOMI, conjunctiva normal, no discharge. [] Neck: Normal range of motion, no tenderness, supple, no stridor. [] Cardiovascular:Heart rate regular rhythm, no murmur [] Lungs & Thorax: Bilateral breath sounds clear to auscultation [] Abdomen: Bowel sounds normal, soft, no tenderness, no masses, no pulsatile masses. [] Skin: Warm, dry, no erythema, no rash. [] Back: No tenderness, no CVA tenderness. [] Extremities: No tenderness, no cyanosis, no clubbing, ROM intact, no edema. [] Neurologic: Alert and oriented X 3, normal motor function, normal sensory function, no focal deficits noted. [] Psychologic: Affect normal, judgement normal, mood normal. [] EKG EKG [] Radiology/Procedures Radiology/Procedures [] Heart Score C/O Chest Pain: No Risk Factors: Risk Factors: DM, Current or recent (<one month) smoker, HTN, HLP, family history of CAD, obesity. Risk Scores: Risk Factors: DM, Current or recent (<one month) smoker, HTN, HLP, family history of CAD, obesity. Course & Med Decision Making Course & Med Decision Making Patient is a 55-year-old male who presents with a chief complaint of anxiety, depression and wanting resources for counselors and local AA support Vital signs not concerning. Physical exam noted above. Psychiatric assessment team evaluated and felt he was safe to go home and was not suicidal, homicidal or hallucinations and just wanted someone to talk to and some resources. Patient given resources for local physicians, free clinics, the guidance Center in the crisis center. Psychiatric assessment team made aware of local AA. Given primary care physician, although he does follow with [facility]. Advised to follow-up first thing in the morning with [facility] primary care, the guidance Center in his local AA. Gave return precautions to the ED. Patient very grateful, verbalized understanding and agreed with plan of discharge. [] Dragon Disclaimer Dragon Disclaimer This electronic medical record was generated, in whole or in part, using a voice recognition dictation system. Departure Departure: Impression: Primary Impression: Anxiety and depression Disposition: 01 HOME / SELF CARE / HOMELESS Condition: GOOD Referrals: PCP,NO (PCP) GEE BETTS MD Patient Instructions: Alcohol Problems, Alcohol and Nutrition, Anxiety and Panic Attacks, Depression, Adult Additional Instructions: Thank you for coming into the emergency department tonight and allowing us to take care of you. Please read all the attached information carefully to go back over the things that were discussed between ER staff and your psychiatric liaison. Please go back through all of the resources given to you including information on the guidance Center, the crisis center number, local free physicians including yours at [facility]. Please call your primary care physician in the morning at [facility] to update on ED visit as well as the guidance Center to try to get in in your local AA. Please come back to the ED with new or concerning symptoms as discussed. CHANDLER COLLADO MD Jul 29, 2021 03:03
[2021-07-29 07:51] VITALS: BP 131/87
== END 2021-07-29 07:51 | disposition home or self-care (01) ==
LOC: ER 02:57
DX: F41.9 Anxiety disorder, unspecified (principal); F32.9 Major depressive disorder, single episode, unspecified; F10.20 Alcohol dependence, uncomplicated; J45.909 Unspecified asthma, uncomplicated; Z86.718 Personal history of other venous thrombosis and embolism; Y90.9 Presence of alcohol in blood, level not specified
CPT/HCPCS: 99281; 99283